=== PATIENT | male | born 1990 | race African-American/Black ===

== ENCOUNTER 2017-01-31 21:11 | Emergency (ER) | payer SELFPAY | END 2017-01-31 23:15 | disposition home or self-care (01) | LOC: CFTX 22:55 | DX: S93.601A Unspecified sprain of right foot, initial encounter (principal); X50.1XXA Overexertion from prolonged static or awkward postures, initial encounter; Y92.69 Other specified industrial and construction area as the place of occurrence of the external cause; Y99.0 Civilian activity done for income or pay | CPT/HCPCS: 29405; 73630; 96372; 99283; J1885 ==